=== PATIENT | male | born 2005 | race Hispanic/Latino ===

== ENCOUNTER 2023-10-17 23:19 | Emergency (ER) | payer OTHER, SELFPAY ==
[2023-10-18] MEDS ORDERED: Acetaminophen 500 MG TAB ONE (00:52)
== END 2023-10-18 02:32 | disposition home or self-care (01) ==
LOC: ERS 23:19
DX: S01.81XA Laceration without foreign body of other part of head, initial encounter (principal); X58.XXXA Exposure to other specified factors, initial encounter
CPT/HCPCS: 12013; 70450